=== PATIENT | male | born 1975 | race Caucasian/White ===

== ENCOUNTER → 2020-06-30 | Outpatient (CLI) | payer OTHER ==
[~2020-06-30] MED LIST: DOC250 PO
[2020-06-30 08:37] LABS: BASOPHILS ABSOLUTE AUTO 0.05 K/mm3 (0.00-0.35); BASOPHILS PERCENT AUTO 1 % (0-2); EOSINOPHILS ABSOLUTE AUTO 0.11 K/mm3 (0.00-0.88); EOSINOPHILS PERCENT AUTO 1 % (0-5); Hematocrit 46.1 % (33.0-39.0); Hemoglobin 15.5 g/dL (10.5-13.5); IMMATURE GRAN ABSOLUTE AUTO 0.02 K/mm3 (0.00-0.10); IMMATURE GRAN PERCENT AUTO 0 % (0-1); LYMPHOCYTES ABSOLUTE AUTO 1.96 K/mm3 (2.94-12.78); LYMPHOCYTES PERCENT AUTO 26 % (49-73); MONOCYTES ABSOLUTE AUTO 0.48 K/mm3 (0.12-2.10); MONOCYTES PERCENT AUTO 6 % (2-12); Mean Corpuscular HGB Conc 33.6 g/dL (30.0-36.5); Mean Corpuscular Volume 92 fL (70-86); Mean Platelet Volume 11.7 fL (9.1-12.4); NEUTROPHILS ABSOLUTE AUTO 5.04 K/mm3 (1.74-10.68); NEUTROPHILS PERCENT AUTO 66 % (21-53); Platelet Count 206 K/mm3 (150-450); RDW Coefficient Variation 12.5 % (11.5-16.0); RDW Standard Deviation 42.2 fL (35.1-46.3); White Blood Cell Count 7.66 K/mm3 (6.00-17.50)
[2020-06-30 08:47] LABS: Alanine Aminotransfer (ALT/SGP 30 U/L (12-78); Albumin, Blood 4.3 g/dL (3.4-5.0); Albumin/Globulin Ratio 1.2 (0.8-1.8); Alk Phos 46 U/L (55-375); Amylase, Blood 28 U/L (25-115); Anion Gap 8 mmol/L (6-16); Aspartate Aminotrans (AST/SGOT 11 U/L (12-80); Bilirubin, Total 0.3 mg/dL (0.1-1.0); Blood Urea Nitrogen 20 mg/dL (5-17); Bun/Creatinine Ratio 18.5 (12.0-20.0); CO2, Blood 27 mmol/L (21-32); Calcium, Blood 9.2 mg/dL (8.5-10.1); Chloride, Blood 100 mmol/L (98-108); Creatinine, Blood 1.08 mg/dL (0.40-0.70); Globulin, Blood 3.7 g/dL (2.2-4.0); Glucose, Blood 179 mg/dL (70-99); Potassium, Blood 4.4 mmol/L (3.5-5.5); Sodium, Blood 135 mmol/L (136-145)
[2020-06-30 09:46] LABS: International Normalized Ratio 0.95; Prothrombin Time Results 10.2 Sec (9.7-11.5)
== END ==
LOC: EDBD 08:30 → LAB SHORT 08:30 → LAB EV 08:30
PROVIDERS: General Practice
DX: K92.2 Gastrointestinal hemorrhage, unspecified (principal)
CPT/HCPCS: 80053; 82150; 85025; 85610; 85730